=== PATIENT | female | born 1990 | race Caucasian/White ===

== ENCOUNTER 2018-08-01 08:05 | Emergency (ER) | payer OTHER ==
[2018-08-01 08:25] VITALS: BP 140/86
[2018-08-01] MEDS ORDERED: Ibuprofen TAB* 600 MG PO ONE (08:27)
[2018-08-01] MEDS ORDERED: Ibuprofen TAB* 600 MG ONE (08:46)
--- NOTE | 2018-08-01 12:48 | UC ---
Lower Extremity/Ankle HPI - HPI Summary HPI Summary: While going down stairs yesterday pt tripped and twisted L foot. Now having pain and tenderness over lateral dorsum of L foot. - History of Current Complaint Chief Complaint: UCLowerExtremity Stated Complaint: L FOOT INJURY Time Seen by Provider: 08/01/18 08:16 Hx Obtained From: Patient Hx Last Menstrual Period: currently ?: No Onset/Duration: Sudden Onset Severity Initially: Moderate Severity Currently: Moderate Pain Intensity: 6 Aggravating Factor(s): Standing, Ambulation Alleviating Factor(s): Rest Able to Bear Weight: Yes - with walking boot pt has from prev injury - Allergies/Home Medications Allergies/Adverse Reactions: Allergies Allergy/AdvReac Type Severity Reaction Status Date / Time Sulfa (Sulfonamide Allergy Rash Verified 08/01/18 08:25 Antibiotics) Home Medications: Home Medications Etonogestrel [Nexplanon] 68 mg IMPLANT 08/01/18 [History] Fexofenadine (NF) [Giselle 180 (NF)] 180 mg PO DAILY 08/01/18 [History Confirmed 08/01/18] Methylphenidate HCl [Methylphenidate ER] 20 mg PO DAILY 08/01/18 [History Confirmed 08/01/18] Sertraline* [Zoloft*] 200 mg PO DAILY 08/01/18 [History Confirmed 08/01/18] PMH/Surg Hx/FS Hx/Imm Hx - Additional Past Medical History Additional PMH: Saw Dr. Duarte for L ankle pain/sprain previously. Had MRI and x-rays, no fx or surgical problem. Respiratory History: Asthma - Surgical History Surgical History: None Surgery Procedure, Year, and Place: IMPANTED - NEXPLANON - CONTROL - SAFE FOR UP TO 3T - Family History Known Family History: Positive: Hypertension - Social History Occupation: Employed Full-time Alcohol Use: Rare Substance Use Type: None Smoking Status (MU): Never Smoked Tobacco Review of Systems All Other Systems Reviewed And Are Negative: Yes Constitutional: Positive: Negative Skin: Positive: Negative Eyes: Positive: Negative ENT: Positive: Negative Respiratory: Positive: Negative Cardiovascular: Positive: Negative Gastrointestinal: Positive: Negative Genitourinary: Positive: Negative Motor: Positive: Negative Neurovascular: Positive: Negative Musculoskeletal: Positive: Arthralgia Neurological: Positive: Negative Psychological: Positive: Negative Is Patient Immunocompromised?: No Physical Exam Triage Information Reviewed: Yes Appearance: Well-Appearing, Obese Vital Signs: Initial Vital Signs Temp 98.5 F 08/01/18 08:20 Pulse 59 08/01/18 08:20 Resp 16 08/01/18 08:20 BP 140/86 08/01/18 08:20 Pulse Ox 100 08/01/18 08:20 Vital Signs Reviewed: Yes Eye Exam: Normal Eyes: Positive: Conjunctiva Clear ENT Exam: Normal ENT: Positive: Normal ENT inspection, Hearing grossly normal, Pharynx normal, TMs normal Neck exam: Normal Neck: Positive: Supple, Nontender, No Lymphadenopathy Respiratory Exam: Normal Respiratory: Positive: Chest non-tender, Lungs clear, Normal breath sounds, No respiratory distress, No accessory muscle use Cardiovascular Exam: Normal Cardiovascular: Positive: RRR, No Murmur Neurological Exam: Normal Neurological: Positive: Alert Psychological Exam: Normal Skin Exam: Normal Diagnostics - Radiology No standard instances Radiology Interpretation Completed By: ED Physician Summary of Radiographic Findings: Closed, nondisplaced fracture of distal portion of L 4th metatarsal. Lower Extremity Course/Dx - Differential Dx/Diagnosis Provider Diagnosis: Metatarsal fracture, Elevated blood pressure reading Discharge - Sign-Out/Discharge Documenting (check all that apply): Patient Departure All imaging exams completed and their final reports reviewed: Yes - Discharge Plan Condition: Stable Disposition: HOME Patient Education Materials: Foot Fracture in Adults (ED) Referrals: Michael Osborn MD [Primary Care Provider] - 5 Days Additional Instructions: Use your crutches ONLY for ambulation until you are seen by an orthopedist. If you need to use your foot to stabilize your balance, put your weight on your heel. - Billing Disposition and Condition Condition: STABLE Disposition: Home - Attestation Statements Provider Attestation: I was available for consult. This patient was seen by the FREDY. The patient was not presented to, seen by, or examined by me. -Lili
== END 2018-08-01 09:20 | disposition home or self-care (01) ==
LOC: UCEAST 08:05
DX: S92.342A Displaced fracture of fourth metatarsal bone, left foot, initial encounter for closed fracture (principal); X50.1XXA Overexertion from prolonged static or awkward postures, initial encounter; Y92.9 Unspecified place or not applicable; R03.0 Elevated blood-pressure reading, without diagnosis of hypertension; Z88.2 Allergy status to sulfonamides
CPT/HCPCS: 99213; A9270-GY; G0463